=== PATIENT | male | born 1975 | race African-American/Black ===

== ENCOUNTER 2018-08-24 17:44 | Emergency (ER) | payer OTHER ==
[~2018-08-24] VITALS: Ht 182.9 cm; Wt 147.0 kg
[2018-08-24 22:08] LABS: BASOPHILS % 0.6 % (0.0-2.0); EOSINOPHILS % 0.5 % (0.0-5.0); HEMATOCRIT. 44.3 % (42.0-52.0); HEMOGLOBIN. 14.4 g/dL (14.0-18.0); LYMPHOCYTES % 55.3 % (20.0-50.0); MEAN CORPUSCULAR HEMOGLOBIN 26.7 pg (28.0-32.0); MEAN CORPUSCULAR VOLUME 82.4 fL (80.0-94.0); MEAN PLATELET VOLUME 8.3 fl (7.4-10.4); MONOCYTES % 2.4 % (2.0-8.0); NEUTROPHILS % 41.2 % (40.0-76.0); PLATELET 209 x1000/uL (130-400); RED BLOOD CELL COUNT 5.38 mill/uL (4.7-6.1); RED CELL DISTRIBUTION WIDTH 17.1 % (11.6-14.6)
[2018-08-24 22:17] LABS: CHLORIDE 105 mEq/L (98-107)
[2018-08-24 22:46] LABS: ETHANOL BLOOD 345 mg/dL
[2018-08-25 00:53] LABS: CLARITY URINE CLEAR (CLEAR); COLOR URINE YELLOW (YELLOW); KETONES URINE NEGATIVE (NEGATIVE); LEUKOCYTE ESTERASE URINE NEGATIVE (NEGATIVE); NITRITE URINE NEGATIVE (NEGATIVE); OCCULT BLOOD URINE NEGATIVE (NEGATIVE); PROTEIN URINE 3+ (NEGATIVE); SPECIFIC GRAVITY URINE 1.028 (1.005-1.030); UROBILINOGEN URINE 0.2 E.U./dL (0.2-1.0)
[2018-08-25 01:04] LABS: METHADONE URINE SCREEN NEGATIVE (NEGATIVE); OPIATES URINE SCREEN NEGATIVE (NEGATIVE)
[2018-08-25 01:05] LABS: *AMPHETAMINES SCREEN URINE NEGATIVE (NEGATIVE); *BARBITURATES SCREEN URINE NEGATIVE (NEGATIVE); *BENZODIAZEPINES SCREEN URINE NEGATIVE (NEGATIVE); *COCAINE SCREEN URINE NEGATIVE (NEGATIVE); CANNABINOID URINE SCREEN NEGATIVE (NEGATIVE); PHENCYCLIDINE URINE SCREEN NEGATIVE (NEGATIVE)
[2018-08-25] MEDS ORDERED: ONDANSETRON 4MG ODT PO ONE (01:15)
[2018-08-25 10:50] VITALS: BP 138/76
[2018-08-26] MEDS ORDERED: LISI-604 MT (15:17)
[2018-08-26] MEDS ORDERED: LEVO50TA8 MT (15:17)
[2018-08-26] MEDS ORDERED: METO1TAB41 PO (15:17)
== END 2018-08-25 10:52 | disposition home or self-care (01) ==
LOC: ER 17:44
DX: R45.851 Suicidal ideations (principal); F32.9 Major depressive disorder, single episode, unspecified; F10.129 Alcohol abuse with intoxication, unspecified; I10 Essential (primary) hypertension; E03.9 Hypothyroidism, unspecified; E66.01 Morbid (severe) obesity due to excess calories; Z59.0 Homelessness; Z68.41 Body mass index [BMI] 40.0-44.9, adult; Y90.8 Blood alcohol level of 240 mg/100 ml or more
CPT/HCPCS: 36415; 80053; 80305; 80307; 80329; 81003; 85025; 87186; 99284; Q0162

== ENCOUNTER 2018-08-25 21:47 | Inpatient (IN) | payer OTHER ==
[~2018-08-25] VITALS: Ht 182.9 cm; Wt 183.3 kg
[~2018-08-25 21:47] MED LIST: ETOMIDATE 2MG/ML 10ML VIAL IV ONE; SUCCINYLCHOLINE CHLORIDE 200MG/10ML IV ONE
[2018-08-25] MEDS ORDERED: SODIUM CHLORIDE 0.9% 1,000 ML IV ONE (22:20)
[2018-08-25] MEDS ORDERED: ONDANSETRON HCL 4MG/2ML INJ IV STA (22:20)
[2018-08-25] MEDS ORDERED: SUCCINYLCHOLINE CHLORIDE 200MG/10ML IV ONE (22:30)
[2018-08-25] MEDS ORDERED: PROPOFOL 10MG/ML 100ML 100 ML IV ONE (22:30)
[2018-08-25] MEDS ORDERED: ETOMIDATE 2MG/ML 10ML VIAL IV ONE (22:30)
[2018-08-25] MEDS ORDERED: KETAMINE HCL 50 MG/ML 10ML ONE (22:41)
[2018-08-25 23:06] LABS: BASOPHILS % 0.9 % (0.0-2.0); EOSINOPHILS % 0.2 % (0.0-5.0); HEMATOCRIT. 43.3 % (42.0-52.0); HEMOGLOBIN. 14.3 g/dL (14.0-18.0); LYMPHOCYTES % 53.6 % (20.0-50.0); MEAN CORPUSCULAR HEMOGLOBIN 26.9 pg (28.0-32.0); MEAN CORPUSCULAR VOLUME 81.3 fL (80.0-94.0); MONOCYTES % 3.6 % (2.0-8.0); NEUTROPHILS % 41.7 % (40.0-76.0); PLATELET 215 x1000/uL (130-400); RED BLOOD CELL COUNT 5.33 mill/uL (4.7-6.1); RED CELL DISTRIBUTION WIDTH 16.9 % (11.6-14.6)
[2018-08-25 23:13] LABS: CHLORIDE 101 mEq/L (98-107); INR 1.1; PROTHROMBIN TIME 10.9 sec (9.1-11.1)
[2018-08-25 23:20] LABS: LDL CHOLESTEROL 38 mg/dL (5-100)
[2018-08-25 23:21] LABS: CREATINE KINASE 430 IU/L (39-308)
[2018-08-25] MEDS ORDERED: KETAMINE HCL 50 MG/ML 10ML IM ONE (23:30)
[2018-08-25] MEDS ORDERED: KETAMINE HCL 50 MG/ML 10ML IV ONE (23:30)
[2018-08-25 23:48] LABS: ETHANOL BLOOD 479 mg/dL
[2018-08-26] VITALS (13 sets, daily range): BP systolic 134–161; BP diastolic 76–107
[2018-08-26] MEDS ORDERED: IOHEXOL-350 100 ML BOTTLE ONE (00:03)
[2018-08-26 00:28] LABS: BG BASE EXCESS 2.8 mmol/L (-2.0-2.0); BG CARBOXYHEMOGLOBIN 0.6 % (0.5-1.5); BG DEOXYHEMOGLOBIN 0.9 % (0.0-5.0); BG FRACTION INSPIRED OXYGEN 100; BG HCO3 ACT 31.2 mmol/L (22.0-26.0); BG METHEMOGLOBIN 0.2 % (0.0-1.5); BG OXYGEN SATURATION 99.1 % (92.0-98.5); BG OXYHEMOGLOBIN 98.3 % (94.0-97.0); BG PCO2 65.8 mmHg (35.0-45.0); BG PH 7.294 (7.350-7.450); BG PO2 229.5 mmHg (75.0-100.0); BG SAMPLE SITE RIGHT RADIAL; BG TIDAL VOLUME(mL) 650 mL; BG TOTAL HEMOGLOBIN 13.8 g/dL (12.0-18.0); BG VENT MODE VENT - A/C; BG VENT RATE 14 set
[2018-08-26 01:02] LABS: CLARITY URINE CLEAR (CLEAR); COLOR URINE YELLOW (YELLOW); KETONES URINE NEGATIVE (NEGATIVE); LEUKOCYTE ESTERASE URINE NEGATIVE (NEGATIVE); NITRITE URINE NEGATIVE (NEGATIVE); OCCULT BLOOD URINE TRACE (NEGATIVE); PROTEIN URINE 2+ (NEGATIVE); SPECIFIC GRAVITY URINE 1.039 (1.005-1.030); UROBILINOGEN URINE 0.2 E.U./dL (0.2-1.0)
[2018-08-26 01:12] LABS: *AMPHETAMINES SCREEN URINE NEGATIVE (NEGATIVE); *BARBITURATES SCREEN URINE NEGATIVE (NEGATIVE); *BENZODIAZEPINES SCREEN URINE NEGATIVE (NEGATIVE)
[2018-08-26 01:13] LABS: *COCAINE SCREEN URINE NEGATIVE (NEGATIVE); CANNABINOID URINE SCREEN NEGATIVE (NEGATIVE); METHADONE URINE SCREEN NEGATIVE (NEGATIVE); OPIATES URINE SCREEN NEGATIVE (NEGATIVE); PHENCYCLIDINE URINE SCREEN NEGATIVE (NEGATIVE)
[2018-08-26] MEDS ORDERED: PIPERACILLIN/TAZ 3.375G PREMIX 50 ML IV SCH (02:08)
[2018-08-26] MEDS ORDERED: VANCOMYCIN 1 G PREMIX 200 ML IV SCH (02:10)
[2018-08-26] MEDS ORDERED: PROPOFOL 10MG/ML 100ML 100 ML IV ONE ×3 (03:30→07:51)
[2018-08-26] MEDS ORDERED: ACETAMINOPHEN 325MG TABLET PO PRN (08:15)
[2018-08-26] MEDS ORDERED: ONDANSETRON HCL 4MG/2ML INJ IV PRN (08:15)
[2018-08-26] MEDS ORDERED: MIDAZOLAM HCL 100 MG in DEXT 5% WATER 80 ML IV PRN (11:00)
[2018-08-26] MEDS ORDERED: METRONIDAZOLE 500 MG PREMIX 100 ML IV SCH (11:20)
[2018-08-26] MEDS: PANTOPRAZOLE SODIUM 40 MG/VIAL IV SCH (11:27)
[2018-08-26] MEDS ORDERED: FENTANYL CITRATE/PF 500 MCG in SODIUM CHLORIDE 0.9% 40 ML IV PRN (11:30)
[2018-08-26] MEDS: ENOXAPARIN 40MG/0.4ML SYR SUBCUT SCH ×2 (11:32→22:51)
[2018-08-26 11:46] LABS: BG BASE EXCESS 4.2 mmol/L (-2.0-2.0); BG CARBOXYHEMOGLOBIN 0.5 % (0.5-1.5); BG DEOXYHEMOGLOBIN 4.1 % (0.0-5.0); BG FRACTION INSPIRED OXYGEN 50; BG HCO3 ACT 30.1 mmol/L (22.0-26.0); BG METHEMOGLOBIN 0.3 % (0.0-1.5); BG OXYGEN SATURATION 95.9 % (92.0-98.5); BG OXYHEMOGLOBIN 95.1 % (94.0-97.0); BG PCO2 49.8 mmHg (35.0-45.0); BG PH 7.399 (7.350-7.450); BG PO2 89.1 mmHg (75.0-100.0); BG SAMPLE SITE RIGHT RADIAL; BG TIDAL VOLUME(mL) 600 mL; BG TOTAL HEMOGLOBIN 14.6 g/dL (12.0-18.0); BG VENT MODE VENT - A/C; BG VENT RATE 18 set
[2018-08-26] MEDS ORDERED: CEFEPIME 1,000 MG in DEXTROSE 5% WATER 50 ML IV SCH ×2 (12:00→21:00)
[2018-08-26] MEDS: LORAZEPAM 2MG/ML CPJ IV PRN (12:00)
[2018-08-26] MEDS: MIDAZOLAM HCL 100 MG in DEXT 5% WATER 80 ML IV PRN ×2 (12:00→20:30)
[2018-08-26] MEDS: FENTANYL CITRATE/PF 500 MCG in SODIUM CHLORIDE 0.9% 40 ML IV PRN ×2 (12:56→17:44)
[2018-08-26] MEDS: IPRATROPIUM/ALBUTEROL 0.5-3(2.5)MG/3ML NEB HHN SCH ×2 (14:39→21:14)
[2018-08-26] MEDS ORDERED: METO1TAB41 PO (15:17)
[2018-08-26] MEDS ORDERED: LISI-604 MT (15:17)
[2018-08-26] MEDS ORDERED: LEVO50TA8 MT (15:17)
[2018-08-26] MEDS: FOLIC ACID 1 MG, THIAMINE HCL 100 MG, MVI, ADULT NO.1 10 ML in DEXTROSE 5% WATER 1,000 ML IV SCH ×8 (15:36→23:00)
[2018-08-26] MEDS: METRONIDAZOLE 500 MG PREMIX 100 ML IV SCH (17:44)
[2018-08-26] MEDS ORDERED: CLONIDINE 0.1MG TABLET PO PRN (18:30)
[2018-08-26] MEDS: CEFEPIME 1,000 MG in DEXTROSE 5% WATER 50 ML IV SCH (22:54)
[2018-08-26] MEDS: DEXT 5%/0.45% NACL 1000ML 1,000 ML IV SCH (22:54)
[2018-08-27] VITALS (45 sets, daily range): BP systolic 116–182; BP diastolic 68–114
[2018-08-27] MEDS: FENTANYL CITRATE/PF 500 MCG in SODIUM CHLORIDE 0.9% 40 ML IV PRN ×3 (01:40→19:43)
[2018-08-27] MEDS: METRONIDAZOLE 500 MG PREMIX 100 ML IV SCH ×3 (01:42→17:53)
[2018-08-27] MEDS: IPRATROPIUM/ALBUTEROL 0.5-3(2.5)MG/3ML NEB HHN SCH ×4 (02:47→19:48)
[2018-08-27 06:35] LABS: BASOPHILS % 0.8 % (0.0-2.0); EOSINOPHILS % 1.2 % (0.0-5.0); HEMATOCRIT. 39.8 % (42.0-52.0); HEMOGLOBIN. 12.9 g/dL (14.0-18.0); LYMPHOCYTES % 47.4 % (20.0-50.0); MEAN CORPUSCULAR HEMOGLOBIN 26.6 pg (28.0-32.0); MEAN CORPUSCULAR VOLUME 81.9 fL (80.0-94.0); MEAN PLATELET VOLUME 8.4 fl (7.4-10.4); MONOCYTES % 7.1 % (2.0-8.0); NEUTROPHILS % 43.5 % (40.0-76.0); PLATELET 158 x1000/uL (130-400); RED BLOOD CELL COUNT 4.86 mill/uL (4.7-6.1); RED CELL DISTRIBUTION WIDTH 16.8 % (11.6-14.6)
[2018-08-27 06:44] LABS: CHLORIDE 105 mEq/L (98-107)
[2018-08-27 08:32] LABS: BG BASE EXCESS 4.5 mmol/L (-2.0-2.0); BG CARBOXYHEMOGLOBIN 0.3 % (0.5-1.5); BG FRACTION INSPIRED OXYGEN 50; BG HCO3 ACT 28.8 mmol/L (22.0-26.0); BG OXYHEMOGLOBIN 97.7 % (94.0-97.0); BG PCO2 41.6 mmHg (35.0-45.0); BG PH 7.458 (7.350-7.450); BG PO2 123.3 mmHg (75.0-100.0); BG SAMPLE SITE LEFT RADIAL; BG TIDAL VOLUME(mL) 600 mL; BG TOTAL HEMOGLOBIN 12.9 g/dL (12.0-18.0); BG VENT MODE VENT - A/C; BG VENT RATE 18 set
[2018-08-27] MEDS: ENOXAPARIN 40MG/0.4ML SYR SUBCUT SCH ×2 (08:47→20:43)
[2018-08-27] MEDS: CEFEPIME 1,000 MG in DEXTROSE 5% WATER 50 ML IV SCH ×2 (08:47→20:43)
[2018-08-27] MEDS: PANTOPRAZOLE SODIUM 40 MG/VIAL IV SCH (08:48)
[2018-08-27] MEDS: METOPROLOL TARTRATE 25MG TABLET PO SCH (08:48)
[2018-08-27] MEDS: MULTIVITAMINS,THER W-MINERALS TABLET NG SCH (08:48)
[2018-08-27] MEDS: LEVOTHYROXINE SODIUM 50MCG TABLET PO SCH (08:48)
[2018-08-27] MEDS: LISINOPRIL 20MG TABLET PO SCH (08:48)
[2018-08-27] MEDS: THIAMINE HCL 100MG TABLET NG SCH (08:48)
[2018-08-27] MEDS: FOLIC ACID 1MG TABLET NG SCH (08:48)
[2018-08-27] MEDS: MIDAZOLAM HCL 100 MG in DEXT 5% WATER 80 ML IV PRN (10:13)
[2018-08-27] MEDS: DEXT 5%/0.45% NACL 1000ML 1,000 ML IV SCH ×3 (10:16→19:37)
[2018-08-27] MEDS: LORAZEPAM 2MG/ML CPJ IV PRN (21:55)
[2018-08-28] VITALS (41 sets, daily range): BP systolic 131–202; BP diastolic 71–161
[2018-08-28] MEDS: MIDAZOLAM HCL 100 MG in DEXT 5% WATER 80 ML IV PRN (01:20)
[2018-08-28] MEDS: IPRATROPIUM/ALBUTEROL 0.5-3(2.5)MG/3ML NEB HHN SCH ×4 (01:49→20:57)
[2018-08-28] MEDS: LORAZEPAM 2MG/ML CPJ IV PRN (02:05)
[2018-08-28] MEDS: METRONIDAZOLE 500 MG PREMIX 100 ML IV SCH ×3 (02:10→17:31)
[2018-08-28] MEDS: FENTANYL CITRATE/PF 500 MCG in SODIUM CHLORIDE 0.9% 40 ML IV PRN ×2 (03:38→07:55)
[2018-08-28] MEDS: DEXT 5%/0.45% NACL 1000ML 1,000 ML IV SCH ×2 (05:05→14:47)
[2018-08-28 06:25] LABS: HEMATOCRIT. 36.4 % (42.0-52.0); HEMOGLOBIN. 11.8 g/dL (14.0-18.0); MEAN CORPUSCULAR HEMOGLOBIN 26.6 pg (28.0-32.0); MEAN CORPUSCULAR VOLUME 82.2 fL (80.0-94.0); MEAN PLATELET VOLUME 8.4 fl (7.4-10.4); PLATELET 121 x1000/uL (130-400); RED BLOOD CELL COUNT 4.43 mill/uL (4.7-6.1); RED CELL DISTRIBUTION WIDTH 17.2 % (11.6-14.6)
[2018-08-28 06:39] LABS: NEUTROPHILS % MANUAL 48.4 % (45.0-75.0)
[2018-08-28 06:40] LABS: BASOPHILS % MANUAL 0.4 % (0.0-2.0); CHLORIDE 106 mEq/L (98-107); LYMPHOCYTES % MANUAL 40.7 % (20.0-50.0); MONOCYTES % MANUAL 6.5 % (2.0-8.0)
[2018-08-28 08:27] LABS: BG BASE EXCESS 6.5 mmol/L (-2.0-2.0); BG CARBOXYHEMOGLOBIN 0.8 % (0.5-1.5); BG DEOXYHEMOGLOBIN 3.2 % (0.0-5.0); BG FRACTION INSPIRED OXYGEN 45; BG HCO3 ACT 31.6 mmol/L (22.0-26.0); BG OXYGEN SATURATION 96.8 % (92.0-98.5); BG PCO2 47.5 mmHg (35.0-45.0); BG PH 7.441 (7.350-7.450); BG SAMPLE SITE RIGHT RADIAL; BG TIDAL VOLUME(mL) 600 mL; BG TOTAL HEMOGLOBIN 12.9 g/dL (12.0-18.0); BG VENT MODE VENT - A/C; BG VENT RATE 16 set
[2018-08-28] MEDS: PANTOPRAZOLE SODIUM 40 MG/VIAL IV SCH (08:36)
[2018-08-28] MEDS: THIAMINE HCL 100MG TABLET NG SCH (08:36)
[2018-08-28] MEDS: CEFEPIME 1,000 MG in DEXTROSE 5% WATER 50 ML IV SCH ×2 (08:36→21:04)
[2018-08-28] MEDS: LEVOTHYROXINE SODIUM 50MCG TABLET PO SCH (08:36)
[2018-08-28] MEDS: MULTIVITAMINS,THER W-MINERALS TABLET NG SCH (08:36)
[2018-08-28] MEDS: LISINOPRIL 20MG TABLET PO SCH (08:36)
[2018-08-28] MEDS: METOPROLOL TARTRATE 25MG TABLET PO SCH (08:36)
[2018-08-28] MEDS: FOLIC ACID 1MG TABLET NG SCH (08:36)
[2018-08-28] MEDS: ENOXAPARIN 40MG/0.4ML SYR SUBCUT SCH ×2 (08:37→21:03)
[2018-08-28] MEDS ORDERED: POTASSIUM CHLORIDE 20MEQ/PACKET GT NR (09:15)
[2018-08-28 12:24] LABS: BG DEOXYHEMOGLOBIN 1.5 % (0.0-5.0); BG FRACTION INSPIRED OXYGEN 45; BG HCO3 ACT 29.2 mmol/L (22.0-26.0); BG METHEMOGLOBIN 0.2 % (0.0-1.5); BG OXYGEN SATURATION 98.5 % (92.0-98.5); BG OXYHEMOGLOBIN 97.3 % (94.0-97.0); BG PCO2 46.2 mmHg (35.0-45.0); BG PH 7.419 (7.350-7.450); BG PO2 135.8 mmHg (75.0-100.0); BG PRESSURE SUPPORT 8; BG SAMPLE SITE RIGHT RADIAL; BG TOTAL HEMOGLOBIN 12.6 g/dL (12.0-18.0); BG VENT MODE VENT - CPAP
[2018-08-28 14:42] LABS: PLATELET ESTIMATE SLIGHTLY DECREASED
[2018-08-28] MEDS: RACEPINEPHRINE 2.25% 0.5ML NEB VIAL HHN PRN ×2 (15:55→20:44)
[2018-08-28] MEDS ORDERED: LISINOPRIL 20MG TABLET PO NR (16:00)
[2018-08-28] MEDS: METOPROLOL TARTRATE 50MG TABLET PO SCH (21:04)
[2018-08-29] VITALS (35 sets, daily range): BP systolic 133–171; BP diastolic 25–144
[2018-08-29] MEDS: DEXT 5%/0.45% NACL 1000ML 1,000 ML IV SCH ×2 (00:54→10:21)
[2018-08-29] MEDS: METRONIDAZOLE 500 MG PREMIX 100 ML IV SCH ×3 (01:06→17:03)
[2018-08-29] MEDS: IPRATROPIUM/ALBUTEROL 0.5-3(2.5)MG/3ML NEB HHN SCH ×4 (01:32→20:28)
[2018-08-29 06:03] LABS: BASOPHILS % 0.3 % (0.0-2.0); EOSINOPHILS % 5.7 % (0.0-5.0); HEMATOCRIT. 35.4 % (42.0-52.0); HEMOGLOBIN. 11.5 g/dL (14.0-18.0); LYMPHOCYTES % 29.5 % (20.0-50.0); MEAN CORPUSCULAR HEMOGLOBIN 26.8 pg (28.0-32.0); MEAN CORPUSCULAR VOLUME 82.4 fL (80.0-94.0); MEAN PLATELET VOLUME 8.4 fl (7.4-10.4); MONOCYTES % 6.2 % (2.0-8.0); NEUTROPHILS % 58.3 % (40.0-76.0); PLATELET 125 x1000/uL (130-400); RED BLOOD CELL COUNT 4.29 mill/uL (4.7-6.1); RED CELL DISTRIBUTION WIDTH 16.5 % (11.6-14.6)
[2018-08-29 06:08] LABS: CHLORIDE 105 mEq/L (98-107)
[2018-08-29] MEDS: PANTOPRAZOLE SODIUM 40 MG/VIAL IV SCH (08:32)
[2018-08-29] MEDS: CEFEPIME 1,000 MG in DEXTROSE 5% WATER 50 ML IV SCH ×2 (08:32→22:42)
[2018-08-29] MEDS: LEVOTHYROXINE SODIUM 50MCG TABLET PO SCH (08:33)
[2018-08-29] MEDS: MULTIVITAMINS,THER W-MINERALS TABLET NG SCH (08:33)
[2018-08-29] MEDS: FOLIC ACID 1MG TABLET NG SCH (08:33)
[2018-08-29] MEDS: ENOXAPARIN 40MG/0.4ML SYR SUBCUT SCH ×2 (08:33→22:39)
[2018-08-29] MEDS: METOPROLOL TARTRATE 50MG TABLET PO SCH ×2 (08:33→22:39)
[2018-08-29] MEDS: THIAMINE HCL 100MG TABLET NG SCH (08:33)
[2018-08-29] MEDS ORDERED: LISINOPRIL 40MG TABLET PO SCH (09:00)
[2018-08-29] MEDS: AMLODIPINE 5MG TABLET PO SCH ×2 (11:29→22:39)
[2018-08-29] MEDS ORDERED: THROAT LOZENGES-BENZOCAINE/MENTH/CETYLPYRD CL LOZENGES MM PRN (12:00)
[2018-08-30] VITALS (9 sets, daily range): BP systolic 132–152; BP diastolic 83–94
[2018-08-30] MEDS: IPRATROPIUM/ALBUTEROL 0.5-3(2.5)MG/3ML NEB HHN SCH (00:41)
[2018-08-30] MEDS: METRONIDAZOLE 500 MG PREMIX 100 ML IV SCH (01:35)
[2018-08-30] MEDS ORDERED: CLONIDINE 0.1MG TABLET PO PRN (07:00)
[2018-08-30 07:12] LABS: BASOPHILS % 0.2 % (0.0-2.0); EOSINOPHILS % 4.3 % (0.0-5.0); HEMATOCRIT. 36.6 % (42.0-52.0); HEMOGLOBIN. 12.2 g/dL (14.0-18.0); LYMPHOCYTES % 25.3 % (20.0-50.0); MEAN CORPUSCULAR VOLUME 80.9 fL (80.0-94.0); MEAN PLATELET VOLUME 8.4 fl (7.4-10.4); MONOCYTES % 5.1 % (2.0-8.0); NEUTROPHILS % 65.1 % (40.0-76.0); PLATELET 130 x1000/uL (130-400); RED BLOOD CELL COUNT 4.52 mill/uL (4.7-6.1); RED CELL DISTRIBUTION WIDTH 16.3 % (11.6-14.6)
[2018-08-30] MEDS ORDERED: LISINOPRIL 40MG TABLET PO SCH ×2 (07:15→09:00)
[2018-08-30] MEDS ORDERED: LEVOTHYROXINE SODIUM 50MCG TABLET PO SCH (07:20)
[2018-08-30 07:34] LABS: CHLORIDE 104 mEq/L (98-107)
[2018-08-30] MEDS ORDERED: AMLODIPINE 5MG TABLET PO SCH (09:00)
== END 2018-08-30 18:00 | disposition home or self-care (01) | DRG 816 ==
LOC: ER 21:47 → CVICU 08-26 01:38 → EDBEDREQ 08-26 01:43 → ENRESERV 08-26 13:46 → 6EST 08-30 02:45
PROVIDERS: ADMIT Internal Medicine; ATTEND Internal Medicine
PROC: 5A1945Z Respiratory Ventilation, 24-96 Consecutive Hours (ICD-10-PCS; principal; 2018-08-25)
PROC: 0BH17EZ Insertion of Endotracheal Airway into Trachea, Via Natural or Artificial Opening (ICD-10-PCS; 2018-08-25)
PROC: 4A00X4Z Measurement of Central Nervous Electrical Activity, External Approach (ICD-10-PCS; 2018-08-27)
DX: T51.0X1A Toxic effect of ethanol, accidental (unintentional), initial encounter (principal); J96.02 Acute respiratory failure with hypercapnia; J69.0 Pneumonitis due to inhalation of food and vomit; G92 Toxic encephalopathy; E03.9 Hypothyroidism, unspecified; E66.01 Morbid (severe) obesity due to excess calories; I11.0 Hypertensive heart disease with heart failure; F32.9 Major depressive disorder, single episode, unspecified; I50.9 Heart failure, unspecified; Y90.8 Blood alcohol level of 240 mg/100 ml or more; E87.2 Acidosis; G31.2 Degeneration of nervous system due to alcohol; Z79.899 Other long term (current) drug therapy; Z68.43 Body mass index [BMI] 50.0-59.9, adult; Z71.3 Dietary counseling and surveillance; Z71.6 Tobacco abuse counseling
CPT/HCPCS: 31500; 36415; 36556; 36600; 70496; 70498; 71045; 80048; 80305; 80307; 80329; 82140; 82375; 82550; 82805; 82962; 83036; 83605; 83721; 83880; 84145; 84443; 84478; 84484; 87070; 92610; 93005; 93970; 94002; 94003; 94640; 96361; 96372; 96374; 96375; 97116; 97163; 97166; 97530; 97535; 99291; A6261; C9113; J0330; J0692; J1650; J2060; J2250; J2543; J2704; J3010; J3370; J3411; J3490; J7030; J7040; J7042; J7050; J7060; J7070; J7620; Q9967

== ENCOUNTER 2018-10-17 11:20 | Emergency (ER) | payer OTHER ==
[~2018-10-17] VITALS: Ht 182.9 cm; Wt 100.0 kg
[~2018-10-17 11:20] MED LIST changes: -ETOMIDATE 2MG/ML 10ML VIAL IV ONE; +LEVO50TA8 MT; +LISI-604 MT; +METO1TAB41 PO; -SUCCINYLCHOLINE CHLORIDE 200MG/10ML IV ONE
[2018-10-17] MEDS ORDERED: SODIUM CHLORIDE 0.9% 1,000 ML IV ONE (11:37)
[2018-10-17] MEDS ORDERED: ONDANSETRON HCL 4MG/2ML INJ IV ONE (12:00)
[2018-10-17 12:10] LABS: CHLORIDE 105 mEq/L (98-107)
[2018-10-17 12:12] LABS: BASOPHILS % 1.3 % (0.0-2.0); EOSINOPHILS % 0.3 % (0.0-5.0); HEMATOCRIT. 41.6 % (42.0-52.0); HEMOGLOBIN. 13.7 g/dL (14.0-18.0); LYMPHOCYTES % 31.6 % (20.0-50.0); MEAN CORPUSCULAR HEMOGLOBIN 26.6 pg (28.0-32.0); MEAN CORPUSCULAR VOLUME 80.6 fL (80.0-94.0); MEAN PLATELET VOLUME 7.6 fl (7.4-10.4); MONOCYTES % 2.7 % (2.0-8.0); NEUTROPHILS % 64.1 % (40.0-76.0); PLATELET 302 x1000/uL (130-400); RED BLOOD CELL COUNT 5.16 mill/uL (4.7-6.1); RED CELL DISTRIBUTION WIDTH 16.7 % (11.6-14.6)
[2018-10-17 12:23] LABS: ETHANOL BLOOD 416 mg/dL
[2018-10-17 16:29] LABS: CANNABINOID URINE SCREEN NEGATIVE (NEGATIVE); PHENCYCLIDINE URINE SCREEN NEGATIVE (NEGATIVE)
[2018-10-17 16:30] LABS: *AMPHETAMINES SCREEN URINE NEGATIVE (NEGATIVE); *BARBITURATES SCREEN URINE NEGATIVE (NEGATIVE); *BENZODIAZEPINES SCREEN URINE NEGATIVE (NEGATIVE); *COCAINE SCREEN URINE NEGATIVE (NEGATIVE); METHADONE URINE SCREEN NEGATIVE (NEGATIVE); OPIATES URINE SCREEN NEGATIVE (NEGATIVE)
[2018-10-17 19:32] VITALS: BP 151/88
== END 2018-10-17 20:05 | disposition home or self-care (01) ==
LOC: ER 11:20
DX: T51.0X1A Toxic effect of ethanol, accidental (unintentional), initial encounter (principal); G92 Toxic encephalopathy; I10 Essential (primary) hypertension; Y90.8 Blood alcohol level of 240 mg/100 ml or more; Y92.488 Other paved roadways as the place of occurrence of the external cause
CPT/HCPCS: 36415; 70450; 80048; 80305; 80307; 80320; 80329; 85025; 96374; 99284; J2405; J7030; Z7610; G0480

== ENCOUNTER 2018-10-18 17:45 | Emergency (ER) | payer OTHER ==
[~2018-10-18] VITALS: Ht 177.8 cm; Wt 80.0 kg
[2018-10-18 18:32] VITALS: BP 165/103
== END 2018-10-18 20:05 | disposition left against medical advice (07) ==
LOC: ER 17:45
DX: F10.10 Alcohol abuse, uncomplicated (principal); Z53.21 Procedure and treatment not carried out due to patient leaving prior to being seen by health care provider; Y90.9 Presence of alcohol in blood, level not specified

== ENCOUNTER 2018-10-20 11:10 | Emergency (ER) | payer OTHER ==
[~2018-10-20] VITALS: Ht 177.8 cm; Wt 127.0 kg
[2018-10-20 12:09] LABS: BASOPHILS % 1.4 % (0.0-2.0); EOSINOPHILS % 0.1 % (0.0-5.0); HEMATOCRIT. 48.4 % (42.0-52.0); LYMPHOCYTES % 24.4 % (20.0-50.0); MEAN CORPUSCULAR HEMOGLOBIN 26.7 pg (28.0-32.0); MEAN CORPUSCULAR VOLUME 80.6 fL (80.0-94.0); MEAN PLATELET VOLUME 7.2 fl (7.4-10.4); MONOCYTES % 3.2 % (2.0-8.0); NEUTROPHILS % 70.9 % (40.0-76.0); PLATELET 332 x1000/uL (130-400); RED CELL DISTRIBUTION WIDTH 16.7 % (11.6-14.6)
[2018-10-20 12:15] LABS: CHLORIDE 98 mEq/L (98-107)
[2018-10-20 12:37] LABS: ETHANOL BLOOD 402 mg/dL
[2018-10-20] MEDS ORDERED: SODIUM CHLORIDE 0.9% 1,000 ML IV ONE (13:03)
[2018-10-20 15:28] LABS: *AMPHETAMINES SCREEN URINE NEGATIVE (NEGATIVE); *BARBITURATES SCREEN URINE NEGATIVE (NEGATIVE); *BENZODIAZEPINES SCREEN URINE NEGATIVE (NEGATIVE); *COCAINE SCREEN URINE NEGATIVE (NEGATIVE); METHADONE URINE SCREEN NEGATIVE (NEGATIVE); OPIATES URINE SCREEN NEGATIVE (NEGATIVE); PHENCYCLIDINE URINE SCREEN NEGATIVE (NEGATIVE)
[2018-10-20 15:29] LABS: CANNABINOID URINE SCREEN NEGATIVE (NEGATIVE)
[2018-10-20] MEDS ORDERED: IOHEXOL-350 100 ML BOTTLE ONE (18:20)
[2018-10-20] MEDS ORDERED: ACETAMINOPHEN 325MG TABLET PO ONE (21:00)
[2018-10-21 02:00] VITALS: BP 127/81
== END 2018-10-21 02:17 | disposition home or self-care (01) ==
LOC: ER 11:19
DX: R07.89 Other chest pain (principal); F10.229 Alcohol dependence with intoxication, unspecified; R45.851 Suicidal ideations; I10 Essential (primary) hypertension; E07.9 Disorder of thyroid, unspecified; Y90.8 Blood alcohol level of 240 mg/100 ml or more
CPT/HCPCS: 36415; 71045; 71275; 80053; 80305; 80320; 83880; 84484; 85025; 85379; 93005; 96360; 96361; 99284; Q9967; Z7610; G0480

== ENCOUNTER 2018-10-22 06:58 | Emergency (ER) | payer OTHER ==
[~2018-10-22] VITALS: Ht 193 cm; Wt 175.0 kg
[2018-10-22] MEDS ORDERED: ONDANSETRON HCL 4MG/2ML INJ IV STA (07:58)
[2018-10-22] MEDS ORDERED: KETOROLAC 30MG/ML VIAL IV STA (07:58)
[2018-10-22] MEDS ORDERED: SODIUM CHLORIDE 0.9% 500 ML IV ONE (07:58)
[2018-10-22 08:27] LABS: BASOPHILS % 1.2 % (0.0-2.0); EOSINOPHILS % 0.1 % (0.0-5.0); HEMATOCRIT. 42.7 % (42.0-52.0); HEMOGLOBIN. 14.2 g/dL (14.0-18.0); LYMPHOCYTES % 37.8 % (20.0-50.0); MEAN CORPUSCULAR HEMOGLOBIN 26.7 pg (28.0-32.0); MEAN CORPUSCULAR VOLUME 80.3 fL (80.0-94.0); MEAN PLATELET VOLUME 7.6 fl (7.4-10.4); MONOCYTES % 3.9 % (2.0-8.0); PLATELET 261 x1000/uL (130-400); RED BLOOD CELL COUNT 5.32 mill/uL (4.7-6.1); RED CELL DISTRIBUTION WIDTH 16.4 % (11.6-14.6)
[2018-10-22 08:29] LABS: CHLORIDE 98 mEq/L (98-107)
[2018-10-22 08:45] LABS: ETHANOL BLOOD 331 mg/dL
[2018-10-22] MEDS ORDERED: POTASSIUM CHLORIDE 20MEQ TABLET SR PO ONE (09:45)
[2018-10-22 09:52] LABS: CLARITY URINE CLOUDY (CLEAR); COLOR URINE YELLOW (YELLOW); KETONES URINE NEGATIVE (NEGATIVE); LEUKOCYTE ESTERASE URINE NEGATIVE (NEGATIVE); NITRITE URINE NEGATIVE (NEGATIVE); OCCULT BLOOD URINE NEGATIVE (NEGATIVE); PH URINE 5.5 (4.5-8.0); PROTEIN URINE 1+ (NEGATIVE); SPECIFIC GRAVITY URINE 1.016 (1.005-1.030); UROBILINOGEN URINE 0.2 E.U./dL (0.2-1.0)
[2018-10-22 10:26] LABS: *BARBITURATES SCREEN URINE NEGATIVE (NEGATIVE); *BENZODIAZEPINES SCREEN URINE NEGATIVE (NEGATIVE); *COCAINE SCREEN URINE NEGATIVE (NEGATIVE); METHADONE URINE SCREEN NEGATIVE (NEGATIVE); OPIATES URINE SCREEN NEGATIVE (NEGATIVE); PHENCYCLIDINE URINE SCREEN NEGATIVE (NEGATIVE)
[2018-10-22 10:27] LABS: CANNABINOID URINE SCREEN NEGATIVE (NEGATIVE)
[2018-10-22 10:38] LABS: *AMPHETAMINES SCREEN URINE NEGATIVE (NEGATIVE)
[2018-10-22 15:15] VITALS: BP 145/85
== END 2018-10-22 15:40 | disposition home or self-care (01) ==
LOC: ER 06:58
DX: E87.6 Hypokalemia (principal); R11.2 Nausea with vomiting, unspecified; R19.7 Diarrhea, unspecified; Z59.0 Homelessness
CPT/HCPCS: 36415; 71045; 80053; 80305; 80320; 81003; 83690; 83880; 84484; 85025; 93005; 96361; 96374; 96375; 99284; J1885; J2405; J7030; J7040; Z7610; G0480